=== PATIENT | male | born 1960 | race African-American/Black ===

== ENCOUNTER 2018-10-06 12:14 | Inpatient (IN) | payer OTHER ==
[2018-10-06 12:50] VITALS: BMI 28.7
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
[2018-10-06] MEDS ORDERED: MAG HYDROX/AL HYDROX/SIMETH 30 ML UNIT-DOSE CUP PO PRN (13:23)
[2018-10-06] MEDS ORDERED: MAGNESIUM CITRATE 300 ML BOTTLE PO PRN (13:23)
[2018-10-06] MEDS ORDERED: ACETAMINOPHEN 325 MG TABLET (FP) PO PRN (13:23)
[2018-10-06] MEDS ORDERED: METHOCARBAMOL 500 MG TABLET PO PRN (13:23)
[2018-10-06] MEDS ORDERED: MAGNESIUM HYDROX 2400MG/30ML ORAL SUSPENSION 30 ML CUP PO PRN (13:23)
[2018-10-06] MEDS ORDERED: chlordiazePOXIDE HCL 25 MG CAPSULE PO PRN (13:23)
[2018-10-06] MEDS ORDERED: hydrOXYzine PAMOATE 25 MG CAPSULE (FP) PO PRN (13:23)
[2018-10-06] MEDS ORDERED: MELATONIN 5 MG TABLETS PO PRN (13:23)
[2018-10-06] MEDS ORDERED: MENTHOL/PHENOL 1 EACH UD MM PRN (13:23)
[2018-10-06] MEDS ORDERED: BISMUTH SUBSALICYLATE 524 MG/30 ML UD PO PRN (13:23)
[2018-10-06] MEDS ORDERED: chlordiazePOXIDE HCL 25 MG CAPSULE PO ONE (13:23)
[2018-10-06] MEDS ORDERED: IBUPROFEN 400 MG TABLET (FP) PO PRN (13:23)
[2018-10-06] MEDS: chlordiazePOXIDE HCL 25 MG CAPSULE PO SCH ×2 (18:02→23:46)
[2018-10-06] MEDS: THIAMINE HCL 100 MG TABLET (FP) PO SCH (23:47)
[2018-10-07] MEDS: chlordiazePOXIDE HCL 25 MG CAPSULE PO SCH ×4 (06:46→23:53)
[2018-10-07] MEDS: PRENATAL VITAMINS W/ FOLIC ACID TABLET (FP) PO SCH (10:11)
[2018-10-07 10:48] LABS: ALBUMIN 3.1 g/dl (3.4-5.0); BILIRUBIN,TOTAL 0.5 mg/dL (0.2-1); CALCIUM 8.2 mg/dL (8.5-10.1); CREATININE 0.9 mg/dL (0.55-1.3); POTASSIUM 4.1 mmol/L (3.5-5.1)
--- NOTE | 2018-10-07 10:59 | PN ---
[facility] CIWA - CIWA Score Nausea/Vomitin-Mild Nausea/No Vomiting Muscle Tremors: 3 Anxiety: 1-Mildly Anxious Agitation: 3 Paroxysmal Sweats: 1-Minimal Palms Moist Orientation: 2-Disoriented Date<2 days Tacttile Disturbances: 0-None Auditory Disturbances: 0-None Visual Disturbances: 0-None Headache: 1-Very Mild CIWA-Ar Total Score: 12 S Progress Note (SOAP) Subjective: long history of diabetes II treated with metformin 500 mg po bid hypertension treated with enalapril and hctz and amlodipin Objective: 10/07/18 10:58 Vital Signs Temperature 97.1 F L 10/07/18 10:14 Pulse Rate 82 10/07/18 10:14 Respiratory Rate 18 10/07/18 10:14 Blood Pressure 159/103 H 10/07/18 10:14 O2 Sat by Pulse Oximetry (%) Laboratory Last Values Sodium 138 mmol/L (136-145) 10/07/18 07:40 Potassium 4.1 mmol/L (3.5-5.1) 10/07/18 07:40 Chloride 107 mmol/L (98-107) 10/07/18 07:40 Carbon Dioxide 27 mmol/L (21-32) 10/07/18 07:40 Anion Gap 4 MMOL/L (8-16) L 10/07/18 07:40 BUN 13 mg/dL (7-18) 10/07/18 07:40 Creatinine 0.9 mg/dL (0.55-1.3) 10/07/18 07:40 Est GFR (CKD-EPI)AfAm 108.73 10/07/18 07:40 Est GFR (CKD-EPI)NonAf 93.82 10/07/18 07:40 Random Glucose 106 mg/dL (74-106) 10/07/18 07:40 Calcium 8.2 mg/dL (8.5-10.1) L 10/07/18 07:40 Total Bilirubin 0.5 mg/dL (0.2-1) 10/07/18 07:40 AST 21 U/L (15-37) 10/07/18 07:40 ALT 30 U/L (13-61) 10/07/18 07:40 Alkaline Phosphatase 64 U/L (45-117) 10/07/18 07:40 Total Protein 6.0 g/dl (6.4-8.2) L 10/07/18 07:40 Albumin 3.1 g/dl (3.4-5.0) L 10/07/18 07:40 lab noted Assessment: 10/07/18 10:59 alcohol withdrawal sx hypertension diabetes II change to low salt no concentrated sugar Plan: continue detox
[2018-10-07] MEDS: amLODIPine BESYLATE 10 MG TABLET (FP) PO SCH (11:09)
[2018-10-07] MEDS: HYDROCHLOROTHIAZIDE 25 MG TABLET (FP) PO SCH (11:09)
[2018-10-07] MEDS: ENALAPRIL MALEATE 10 MG TABLET (FP) PO SCH (11:09)
[2018-10-07 11:22] LABS: HEMATOCRIT 39.2 % (35.4-49); HEMOGLOBIN 12.6 GM/dL (11.7-16.9); MCH 28.2 pg (25.7-33.7); MCHC 32.2 g/dl (32.0-35.9); MEAN CELL VOLUME 87.5 fl (80-96); MEAN PLT VOLUME 8.1 fl (7.5-11.1); PLATELET COUNT 158 K/MM3 (134-434); RBC 4.48 M/mm3 (4.00-5.60); RDW 15.2 % (11.9-15.9); WHITE BLOOD COUNT 4.8 K/mm3 (4.0-10.0)
--- NOTE | 2018-10-07 12:25 | EKG ---
Test Reason : Blood Pressure : / mmHG Vent. Rate : 084 BPM Atrial Rate : 084 BPM P-R Int : 150 ms QRS Dur : 098 ms QT Int : 384 ms P-R-T Axes : 064 051 083 degrees QTc Int : 453 ms NORMAL SINUS RHYTHM NORMAL ECG NO PREVIOUS ECGS AVAILABLE Confirmed by ADALBERTO RONQUILLO MD ([id number]) on 10/07/2018 12:25:36 PM Referred By: Confirmed By:ADALBERTO RONQUILLO MD
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
[2018-10-07] MEDS: metFORMIN HCL 500 MG TABLET (FP) PO SCH (16:30)
[2018-10-07] MEDS: THIAMINE HCL 100 MG TABLET (FP) PO SCH (23:52)
[2018-10-08] MEDS: chlordiazePOXIDE HCL 25 MG CAPSULE PO SCH ×2 (06:06→10:40)
[2018-10-08] MEDS: metFORMIN HCL 500 MG TABLET (FP) PO SCH ×2 (06:16→17:46)
[2018-10-08] MEDS: ENALAPRIL MALEATE 10 MG TABLET (FP) PO SCH (10:40)
[2018-10-08] MEDS: amLODIPine BESYLATE 10 MG TABLET (FP) PO SCH (10:40)
[2018-10-08] MEDS: HYDROCHLOROTHIAZIDE 25 MG TABLET (FP) PO SCH (10:40)
[2018-10-08] MEDS: PRENATAL VITAMINS W/ FOLIC ACID TABLET (FP) PO SCH (10:41)
--- NOTE | 2018-10-08 12:09 | PN ---
S CIWA - CIWA Score Nausea/Vomitin-Mild Nausea/No Vomiting Muscle Tremors: 2 Anxiety: 2 Agitation: 2 Paroxysmal Sweats: 1-Minimal Palms Moist Orientation: 0-Oriented Tacttile Disturbances: 0-None Auditory Disturbances: 0-None Visual Disturbances: 0-None Headache: 0-None Present CIWA-Ar Total Score: 8 [facility] Progress Note (SOAP) Subjective: feeling better today patient wants to maintain sobriety discuss self management of relapse prevention Objective: 10/08/18 12:10 Vital Signs Temperature 97.6 F 10/08/18 09:15 Pulse Rate 82 10/08/18 09:15 Respiratory Rate 18 10/08/18 09:15 Blood Pressure 138/84 10/08/18 09:15 O2 Sat by Pulse Oximetry (%) Laboratory Last Values WBC 4.8 K/mm3 (4.0-10.0) 10/07/18 07:40 RBC 4.48 M/mm3 (4.00-5.60) 10/07/18 07:40 Hgb 12.6 GM/dL (11.7-16.9) 10/07/18 07:40 Hct 39.2 % (35.4-49) 10/07/18 07:40 MCV 87.5 fl (80-96) 10/07/18 07:40 MCH 28.2 pg (25.7-33.7) 10/07/18 07:40 MCHC 32.2 g/dl (32.0-35.9) 10/07/18 07:40 RDW 15.2 % (11.9-15.9) 10/07/18 07:40 Plt Count 158 K/MM3 (134-434) 10/07/18 07:40 MPV 8.1 fl (7.5-11.1) 10/07/18 07:40 Sodium 138 mmol/L (136-145) 10/07/18 07:40 Potassium 4.1 mmol/L (3.5-5.1) 10/07/18 07:40 Chloride 107 mmol/L (98-107) 10/07/18 07:40 Carbon Dioxide 27 mmol/L (21-32) 10/07/18 07:40 Anion Gap 4 MMOL/L (8-16) L 10/07/18 07:40 BUN 13 mg/dL (7-18) 10/07/18 07:40 Creatinine 0.9 mg/dL (0.55-1.3) 10/07/18 07:40 Est GFR (CKD-EPI)AfAm 108.73 10/07/18 07:40 Est GFR (CKD-EPI)NonAf 93.82 10/07/18 07:40 POC Glucometer 119 UNITS (80-120) 10/08/18 06:06 Random Glucose 106 mg/dL (74-106) 10/07/18 07:40 Calcium 8.2 mg/dL (8.5-10.1) L 10/07/18 07:40 Total Bilirubin 0.5 mg/dL (0.2-1) 10/07/18 07:40 AST 21 U/L (15-37) 10/07/18 07:40 ALT 30 U/L (13-61) 10/07/18 07:40 Alkaline Phosphatase 64 U/L (45-117) 10/07/18 07:40 Total Protein 6.0 g/dl (6.4-8.2) L 10/07/18 07:40 Albumin 3.1 g/dl (3.4-5.0) L 10/07/18 07:40 RPR Titer Nonreactive (NONREACTIVE) 10/07/18 07:40 lab noted Assessment: 10/08/18 12:10 withdrawal sx Plan: continue detox
[2018-10-08] MEDS ORDERED: chlordiazePOXIDE HCL 10 MG CAPSULE PO PRN (17:00)
[2018-10-08] MEDS: chlordiazePOXIDE HCL 10 MG CAPSULE PO SCH ×2 (17:47→22:15)
[2018-10-08] MEDS: THIAMINE HCL 100 MG TABLET (FP) PO SCH (22:14)
[2018-10-09] MEDS: chlordiazePOXIDE HCL 10 MG CAPSULE PO SCH ×2 (06:07→10:55)
[2018-10-09] MEDS: metFORMIN HCL 500 MG TABLET (FP) PO SCH (06:07)
[2018-10-09 09:17] VITALS: BP 167/102; PULSE 88; TEMP 96.1
[2018-10-09] MEDS: PRENATAL VITAMINS W/ FOLIC ACID TABLET (FP) PO SCH (10:55)
[2018-10-09] MEDS: ENALAPRIL MALEATE 10 MG TABLET (FP) PO SCH (10:55)
[2018-10-09] MEDS: HYDROCHLOROTHIAZIDE 25 MG TABLET (FP) PO SCH (10:55)
[2018-10-09] MEDS: amLODIPine BESYLATE 10 MG TABLET (FP) PO SCH (10:55)
--- NOTE | 2018-10-09 13:26 | DS ---
[facility] Detox Discharge Summary Admission Date: 10/06/18 Discharge Date: 10/09/18 - History Present History: Alcohol Dependence Additional Comments: 57 years old male admitted on 10/06/18 for alcohol withdrawal stabilization feeling better today preferring alcohol rehab today [facility] - Physical Exam Results Vital Signs: Vital Signs Temperature 96.1 F L 10/09/18 09:16 Pulse Rate 88 10/09/18 09:16 Respiratory Rate 18 10/09/18 09:16 Blood Pressure 167/102 H 10/09/18 09:16 O2 Sat by Pulse Oximetry (%) Pertinent Admission Physical Exam Findings: alcohol withdrawal sx Laboratory Last Values WBC 4.8 K/mm3 (4.0-10.0) 10/07/18 07:40 RBC 4.48 M/mm3 (4.00-5.60) 10/07/18 07:40 Hgb 12.6 GM/dL (11.7-16.9) 10/07/18 07:40 Hct 39.2 % (35.4-49) 10/07/18 07:40 MCV 87.5 fl (80-96) 10/07/18 07:40 MCH 28.2 pg (25.7-33.7) 10/07/18 07:40 MCHC 32.2 g/dl (32.0-35.9) 10/07/18 07:40 RDW 15.2 % (11.9-15.9) 10/07/18 07:40 Plt Count 158 K/MM3 (134-434) 10/07/18 07:40 MPV 8.1 fl (7.5-11.1) 10/07/18 07:40 Sodium 138 mmol/L (136-145) 10/07/18 07:40 Potassium 4.1 mmol/L (3.5-5.1) 10/07/18 07:40 Chloride 107 mmol/L (98-107) 10/07/18 07:40 Carbon Dioxide 27 mmol/L (21-32) 10/07/18 07:40 Anion Gap 4 MMOL/L (8-16) L 10/07/18 07:40 BUN 13 mg/dL (7-18) 10/07/18 07:40 Creatinine 0.9 mg/dL (0.55-1.3) 10/07/18 07:40 Est GFR (CKD-EPI)AfAm 108.73 10/07/18 07:40 Est GFR (CKD-EPI)NonAf 93.82 10/07/18 07:40 POC Glucometer 153 UNITS (80-120) 10/09/18 06:06 Random Glucose 106 mg/dL (74-106) 10/07/18 07:40 Calcium 8.2 mg/dL (8.5-10.1) L 10/07/18 07:40 Total Bilirubin 0.5 mg/dL (0.2-1) 10/07/18 07:40 AST 21 U/L (15-37) 10/07/18 07:40 ALT 30 U/L (13-61) 10/07/18 07:40 Alkaline Phosphatase 64 U/L (45-117) 10/07/18 07:40 Total Protein 6.0 g/dl (6.4-8.2) L 10/07/18 07:40 Albumin 3.1 g/dl (3.4-5.0) L 10/07/18 07:40 Urine Color Yellow 10/08/18 18:40 Urine Appearance Clear 10/08/18 18:40 Urine pH Cancelled 10/08/18 13:50 Urine pH (Auto) 6.0 (5.0-8.0) 10/08/18 18:40 Ur Specific [place] Cancelled 10/08/18 13:50 Specific [place] (Auto) 1.015 (1.010-1.035) 10/08/18 18:40 Urine Protein Cancelled 10/08/18 13:50 Urine Protein (Auto) Negative (NEGATIVE) 10/08/18 18:40 Urine Glucose (UA) Cancelled 10/08/18 13:50 Glucose (UA)(Auto) Negative (NEGATIVE) 10/08/18 18:40 Urine Ketones Cancelled 10/08/18 13:50 Urine Ketones (Auto) Negative (NEGATIVE) 10/08/18 18:40 Urine Blood Cancelled 10/08/18 13:50 Urine Blood (Auto) Negative (NEGATIVE) 10/08/18 18:40 Urine Nitrite Cancelled 10/08/18 13:50 Urine Nitrite (Auto) Negative (NEGATIVE) 10/08/18 18:40 Urine Bilirubin Negative (<2.0 mg/dL) 10/08/18 18:40 Urine Urobilinogen Cancelled 10/08/18 13:50 Urine Urobilinogen (Auto) 0.2 mg/dL (0.2-1.0) 10/08/18 18:40 Ur Leukocyte Esterase Cancelled 10/08/18 13:50 Leukocyte Esterase (Auto) Negative (NEGATIVE) 10/08/18 18:40 Urine WBC (Auto) Cancelled 10/08/18 13:50 Urine RBC (Auto) Cancelled 10/08/18 13:50 Urine Casts (Auto) Cancelled 10/08/18 13:50 U Pathogenic Cast Auto Cancelled 10/08/18 13:50 U Epithel Cells (Auto) Cancelled 10/08/18 13:50 U Sm Round Cell (Auto) Cancelled 10/08/18 13:50 Urine Crystals (Auto) Cancelled 10/08/18 13:50 Urine Bacteria (Auto) Cancelled 10/08/18 13:50 Urine Yeast (Auto) Cancelled 10/08/18 13:50 RPR Titer Nonreactive (NONREACTIVE) 10/07/18 07:40 lab noted - Treatment Hospital Course: Detox Protocol Followed, Detoxed Safely, Responded well, Discharged Condition Good, Rehab Referral Accepted Patient has Accepted a Re[facility] Referral to: [facility] - Medication Discharge Medications: Ambulatory Orders Amlodipine Besylate [Norvasc -] 10 mg PO DAILY 10/07/18 Enalapril Maleate [Vasotec -] 10 mg PO DAILY 10/07/18 Hydrochlorothiazide [Hctz -] 25 mg PO DAILY 10/07/18 metFORMIN HCL [Glucophage -] 500 mg PO BID 10/07/18 - Diagnosis (1) Nicotine dependence Current Visit: Yes Status: Acute Qualifiers: Nicotine product type: cigarettes Substance use status: in withdrawal Qualified Code(s): F17.213 - Nicotine dependence, cigarettes, with withdrawal (2) Hypertension Current Visit: Yes Status: Chronic Qualifiers: Hypertension type: essential hypertension Qualified Code(s): I10 - Essential (primary) hypertension (3) Diabetes mellitus type II, controlled Current Visit: Yes Status: Chronic Qualifiers: Diabetes mellitus detention insulin use: without detention use Diabetes mellitus complication status: without complication Qualified Code(s): E11.9 - Type 2 diabetes mellitus without complications (4) Alcohol dependence with uncomplicated withdrawal Current Visit: Yes Status: Acute (5) Hepatitis C virus infection cured after antiviral drug therapy Current Visit: Yes Status: Chronic (6) PPD positive, treated Current Visit: Yes Status: Resolved - AMA Did Patient Leave Against Medical Advice: No
[2018-10-09] MEDS ORDERED: chlordiazePOXIDE HCL 10 MG CAPSULE PO SCH (17:00)
== END 2018-10-09 12:40 | disposition other institution (70) | DRG 774 ==
LOC: YASAS 12:14 → Y3N 13:46
PROVIDERS: ADMIT Surgery; ATTEND Surgery
PROC: HZ2ZZZZ Detoxification Services for Substance Abuse Treatment (ICD-10-PCS; principal; 2018-10-06)
DX: F10.230 Alcohol dependence with withdrawal, uncomplicated (principal); F14.20 Cocaine dependence, uncomplicated; F12.20 Cannabis dependence, uncomplicated; F17.213 Nicotine dependence, cigarettes, with withdrawal; F32.9 Major depressive disorder, single episode, unspecified; I10 Essential (primary) hypertension; E11.9 Type 2 diabetes mellitus without complications; R76.11 Nonspecific reaction to tuberculin skin test without active tuberculosis; B18.2 Chronic viral hepatitis C; Z79.84 Long term (current) use of oral hypoglycemic drugs; Z91.5 Personal history of self-harm
CPT/HCPCS: 36415; 71046-TC-FY; 80053; 81003; 82962; 85027; 86593; 93005; 93010

== ENCOUNTER 2024-08-28 12:18 | Inpatient (IN) | payer OTHER ==
[2024-08-28 13:07] VITALS: BMI 27.5
[2024-08-28] MEDS ORDERED: POLYETHYLENE GLYCOL (HEALTHYLAX) 3350 17 GM PACKET PO PRN (13:28)
[2024-08-28] MEDS ORDERED: BENZOCAINE/MENTHOL (CHLORASEPTIC ) LOZENGE MM PRN (13:28)
[2024-08-28] MEDS ORDERED: MAGNESIUM HYDROX 2400MG/30ML ORAL SUSPENSION 30 ML CUP PO PRN (13:28)
[2024-08-28] MEDS ORDERED: ACETAMINOPHEN 325 MG TABLET (FP) PO PRN (13:28)
[2024-08-28] MEDS ORDERED: BENZONATATE 200 MG CAPSULE PO PRN (13:28)
[2024-08-28] MEDS ORDERED: IBUPROFEN 400 MG TABLET (FP) PO PRN (13:28)
[2024-08-28] MEDS ORDERED: IBUPROFEN 600 MG TABLET (FP) PO PRN (13:28)
[2024-08-28] MEDS ORDERED: hydrOXYzine PAMOATE 25 MG CAPSULE (FP) PO PRN (13:28)
[2024-08-28] MEDS ORDERED: NALOXONE (NARCAN) HCL 4 MG/0.1 ML SPRAY NS PRN (13:28)
[2024-08-28] MEDS ORDERED: guaiFENesin 600 MG TABLET.ER (FP) PO PRN (13:28)
[2024-08-28] MEDS ORDERED: LOPERAMIDE HCL 2 MG CAPSULE PO PRN (13:28)
[2024-08-28] MEDS ORDERED: HYDROCHLOROTHIAZIDE 12.5 MG CAPSULE (FP) ONE (15:06)
[2024-08-28] MEDS: HYDROCHLOROTHIAZIDE 25 MG TABLET (FP) PO SCH (15:12)
[2024-08-28] MEDS: metFORMIN HCL 500 MG TABLET (FP) PO SCH (17:05)
[2024-08-28] MEDS: MAG HYDROX/AL HYDROX/SIMETH 30 ML UNIT-DOSE CUP PO PRN (21:54)
[2024-08-28] MEDS: THIAMINE 100 MG TABLET PO SCH (21:54)
[2024-08-28] MEDS: MELATONIN 5 MG TABLETS PO SCH (21:55)
[2024-08-29] MEDS: TAMSULOSIN HCL 0.4 MG CAP PO SCH (07:34)
[2024-08-29] MEDS: ASPIRIN COATED 81 MG TABLET.EC PO SCH (10:07)
[2024-08-29] MEDS: amLODIPine BESYLATE 10 MG TABLET (FP) PO SCH (10:07)
[2024-08-29] MEDS: PRENATAL VITAMINS W/ FOLIC ACID TABLET (FP) PO SCH (10:07)
[2024-08-29 11:10] LABS: HEMATOCRIT 43.7 % (40.1-51.0); HEMOGLOBIN 13.2 g/dL (13.7-17.5); MCHC 30.2 g/dl (32.3-36.5); MEAN CELL VOLUME 88.3 fl (79.0-92.2); MEAN PLT VOLUME 11.2 fl (9.4-12.4); PLATELET COUNT 203 x10^3/uL (163-337); RDW 13.9 % (12.2-16.4)
[2024-08-29 11:16] LABS: POTASSIUM 3.4 mmol/L (3.5-5.1)
[2024-08-29 11:21] LABS: EPI CELLS 12 /uL (0-25.1); HYALINE CASTS 1 /uL (0-3.1); PH,URINE 5.5 (5.0-8.0); URINE APPEARANCE CLEAR; URINE BACTERIA 76 /uL (0-1359); URINE BILIRUBIN NEGATIVE (NEGATIVE); URINE COLOR YELLOW; URINE GLUCOSE (UA) NEGATIVE (NEGATIVE); URINE KETONE TRACE (NEGATIVE); URINE LEUK ESTERASE TRACE (NEGATIVE); URINE NITRITE NEGATIVE (NEGATIVE); URINE PROTEIN NEGATIVE (NEGATIVE); URINE RBC 7 /uL (0-23.9); URINE WBC 37 /uL (0-25.8)
[2024-08-29 11:26] LABS: ALBUMIN 3.8 g/dl (3.4-5.0)
[2024-08-29 11:27] LABS: BLOOD UREA NITROGEN 24.5 mg/dL (7-18); CALCIUM 8.6 mg/dL (8.5-10.1)
[2024-08-29 11:29] LABS: CREATININE 1.2 mg/dL (0.55-1.3)
[2024-08-29 11:31] LABS: BILIRUBIN,TOTAL 0.5 mg/dL (0.2-1); TOT PROT 6.9 g/dl (6.4-8.2)
[2024-08-29 14:15] LABS: SYPHILIS W/ RPR CONF REACTIVE (NONREACTIVE)
[2024-08-29 14:41] LABS: HCV DIAGNOSTIC IN-HOUSE W/RFLX REACTIVE (NONREACTIVE)
[2024-09-02 06:48] VITALS: RESP 16; TEMP 97.7
[2024-09-02 12:46] VITALS: BP 137/73; PULSE 98
== END 2024-09-02 09:46 | disposition left against medical advice (07) | DRG 770 ==
LOC: YASAS 12:18 → Y5N 15:30
PROVIDERS: ADMIT Psychiatry & Neurology Pain Medicine; ATTEND Psychiatry & Neurology Pain Medicine
PROC: HZ42ZZZ Group Counseling for Substance Abuse Treatment, Cognitive-Behavioral (ICD-10-PCS; principal; 2024-08-28)
DX: F10.20 Alcohol dependence, uncomplicated (principal); F14.20 Cocaine dependence, uncomplicated; F12.20 Cannabis dependence, uncomplicated; I10 Essential (primary) hypertension; E11.9 Type 2 diabetes mellitus without complications; Z79.84 Long term (current) use of oral hypoglycemic drugs; Z87.891 Personal history of nicotine dependence
CPT/HCPCS: 36415; 71046-TC-FY; 80053; 80305; 80307; 81003; 82962; 83036; 85027; 86593; 86780; 86803; 87522; 87811; 93005; 93010